=== PATIENT | female | born 1975 | race Caucasian/White ===

== ENCOUNTER 2018-10-07 14:40 | Emergency (ER) | payer OTHER ==
[~2018-10-07] VITALS: Ht 157.5 cm; Wt 97.5 kg
[2018-10-07] MEDS ORDERED: ASPIR 8181 MG PO (15:10)
[2018-10-07] MEDS ORDERED: CYMBALTA60 MG PO (15:10)
[2018-10-07] MEDS ORDERED: TICALAST NASAL1 EACH NASAL (15:11)
[2018-10-07] MEDS ORDERED: SPIRONOLACTONE50 MG PO (15:12)
[2018-10-07] MEDS ORDERED: VALTREX 500 MG500 MG PO (15:12)
[2018-10-07] MEDS ORDERED: SUMATRIPTAN SUC50 MG PO (15:12)
[2018-10-07] MEDS ORDERED: LOTEMAX3.5 GM PO (15:13)
[2018-10-07] MEDS ORDERED: RESTASIS1 EACH OPHTHALMIC (15:13)
[2018-10-07] MEDS ORDERED: FLONASE 0.05%50 MCG NASAL (15:13)
[2018-10-07] MEDS ORDERED: IBU800 MG PO (18:10)
[2018-10-07 18:20] VITALS: BP 129/71
== END 2018-10-07 18:22 | disposition home or self-care (01) ==
LOC: M.ERS 14:40
DX: M25.561 Pain in right knee (principal); M25.562 Pain in left knee; M25.531 Pain in right wrist; F41.9 Anxiety disorder, unspecified; G43.909 Migraine, unspecified, not intractable, without status migrainosus; F32.9 Major depressive disorder, single episode, unspecified; G62.9 Polyneuropathy, unspecified; Z88.2 Allergy status to sulfonamides; Z90.710 Acquired absence of both cervix and uterus

== ENCOUNTER → 2018-12-30 | Outpatient (CLI) | payer OTHER ==
[~2018-12-30] MED LIST: ASPIR 8181 MG PO; CYMBALTA60 MG PO; FLONASE 0.05%50 MCG NASAL; IBU800 MG PO; LOTEMAX3.5 GM PO; RESTASIS1 EACH OPHTHALMIC; SPIRONOLACTONE50 MG PO; SUMATRIPTAN SUC50 MG PO; TICALAST NASAL1 EACH NASAL; VALTREX 500 MG500 MG PO
== END ==
LOC: M.LAB 04:52
DX: Z01.812 Encounter for preprocedural laboratory examination (principal)

== ENCOUNTER → 2019-01-27 | Outpatient (CLI) | payer OTHER | LOC: M.LAB 04:43 | DX: Z01.812 Encounter for preprocedural laboratory examination (principal) ==

== ENCOUNTER → 2019-04-06 | Outpatient (CLI) | payer OTHER | LOC: M.LAB 05:26 | DX: E87.6 Hypokalemia (principal) ==

== ENCOUNTER → 2019-09-28 | Outpatient (CLI) | payer OTHER | LOC: M.LAB 03:12 | DX: E87.6 Hypokalemia (principal) ==